=== PATIENT | female | born 1990 | race Hispanic/Latino ===

== ENCOUNTER 2024-02-22 20:52 | Emergency (ER) | payer OTHER ==
[2024-02-22] MEDS ORDERED: IBUP-2077 PO (21:25)
[2024-02-22] MEDS ORDERED: CYCL10TA16 PO (21:25)
[2024-02-22] MEDS: CYCLOBENZAPRINE HCL 10 MG TABLET PO ONE (22:37)
[2024-02-22] MEDS: KETOROLAC 60 MG VIAL (30MG/ML) IM ONE (22:37)
== END 2024-02-22 22:40 | disposition home or self-care (01) ==
LOC: EDH 20:52
DX: S39.012A Strain of muscle, fascia and tendon of lower back, initial encounter (principal); X58.XXXA Exposure to other specified factors, initial encounter; Y93.89 Activity, other specified; Y92.89 Other specified places as the place of occurrence of the external cause; Y99.8 Other external cause status